=== PATIENT | male | born 1960 | race Two or more races ===

== ENCOUNTER 2021-10-06 22:37 | Emergency (ER) | payer MEDICAID, OTHER ==
[~2021-10-06] VITALS: Ht 170.2 cm; Wt 63.0 kg
[2021-10-06 22:37] VITALS: BP 141/95
== END 2021-10-07 03:18 | disposition left against medical advice (07) ==
LOC: ER 22:37
DX: R20.2 Paresthesia of skin (principal); Z53.21 Procedure and treatment not carried out due to patient leaving prior to being seen by health care provider